=== PATIENT | female | born 1990 | race Caucasian/White ===

== ENCOUNTER → 2017-10-13 | Outpatient (CLI) | payer BC ==
--- NOTE | 2017-10-14 10:58 | ECHOF ---
Referral Reason:R00.2 Palpitations MEASUREMENTS -------- HEIGHT: 167.6 cm WEIGHT: 63.5 kg BP: RVIDd: 1.8 cm (< 3.3) IVSd: 0.9 cm (0.6 - 1.1) LVIDd: 4.6 cm (3.9 - 5.3) LVPWd: 0.9 cm (0.6 - 1.1) IVSs: 1.1 cm LVIDs: 3.0 cm LVPWs: 1.2 cm LAESV Index (A-L): 18.29 ml/m Ao Diam: 3.0 cm (2.0 - 3.7) AV Cusp: 2.2 cm (1.5 - 2.6) LA Diam: 2.2 cm (2.7 - 3.8) MV EXCURSION: 17.202 mm (> 18.000) MV EF SLOPE: 104 mm/s (70 - 150) EPSS: 0.8 cm MV E Helio: 0.97 m/s MV DecT: 274 ms MV A Helio: 0.85 m/s MV E/A Ratio: 1.14 RAP: 5.00 mmHg RVSP: 23.40 mmHg FINDINGS -------- Sinus rhythm. This was a technically good study. The left ventricular size is normal. Left ventricular wall thickness is normal. Overall left vent ricular systolic function is normal with, an EF between 55 - 60 %. The right ventricle is normal in size and function. Normal LA size by volume 22+/-6 ml/m2. The right atrium is normal in size. The aortic valve is trileaflet, and appears structurally normal. No aortic stenosis or regurgitation. The mitral valve is normal. There is trace mitral regurgitation. Trace tricuspid regurgitation present. Right ventricular systolic pressure is normal at < 35 mmHg. There is no evidence of pulmonary hypertension. The pulmonic valve is normal. The aortic root size is normal. Normal inferior vena cava with normal inspiratory collapse consistent with estimated right atrial pre ssure of 5 mmHg. The pericardium is normal. There is no pericardial effusion. CONCLUSIONS -------- 1. Sinus rhythm. 2. This was a technically good study. 3. The left ventricular size is normal. 4. Left ventricular wall thickness is normal. 5. Overall left ventricular systolic function is normal with, an EF between 55 - 60 %. 6. Normal LA size by volume 22+/-6 ml/m2. 7. The aortic valve is trileaflet, and appears structurally normal. No aortic stenosis or regurgitati on. 8. There is trace mitral regurgitation. 9. Trace tricuspid regurgitation present. 10. Right ventricular systolic pressure is normal at < 35 mmHg. 11. There is no evidence of pulmonary hypertension. 12. The aortic root size is normal. 13. There is no pericardial effusion. [employer] ANALYST: Seamus Gilbert RDCS
== END | disposition home or self-care (01) ==
LOC: RADECHMAIN 16:16
PROVIDERS: ATTEND Nurse Practitioner Family
DX: R00.2 Palpitations (principal)
CPT/HCPCS: 93306

== ENCOUNTER → 2020-07-30 | Outpatient (CLI) | payer BC | END | disposition home or self-care (01) | LOC: LABMAIN 20:37 | PROVIDERS: ATTEND Physician Assistant | DX: Z20.828 Contact with and (suspected) exposure to other viral communicable diseases (principal) | CPT/HCPCS: 87635 ==

== ENCOUNTER → 2020-08-24 | Outpatient (CLI) | payer MEDICAID | END | disposition home or self-care (01) | LOC: LABMAIN 01:19 | PROVIDERS: ATTEND Nurse Practitioner | DX: Z53.9 Procedure and treatment not carried out, unspecified reason (principal) ==

== ENCOUNTER → 2020-12-15 | Outpatient (CLI) | payer MEDICAID ==
[2020-12-15 20:29] LABS: HCT 36.7 % (34.0-46.0); HGB 12.2 gm/dL (11.4-16.0); MCH 30.5 pg (25.0-35.0); MCHC 33.1 g/dL (31.0-37.0); MCV 92.1 fL (80.0-100.0); Mean Platelet Volume 7.8; Platelet Count 253 k/uL (150-450); RBC 3.99 m/uL (3.80-5.40); WBC 7.6 k/uL (3.8-10.6)
[2020-12-16 11:35] LABS: Hepatitis B Surface Antigen Non-Reactive (Non-Reactive)
== END | disposition home or self-care (01) ==
LOC: LABMAIN 19:55
PROVIDERS: ATTEND Obstetrics & Gynecology
DX: Z34.01 Encounter for supervision of normal first pregnancy, first trimester (principal); Z3A.00 Weeks of gestation of pregnancy not specified
CPT/HCPCS: 36415; 85027; 86762; 86780; 86850; 86900; 86901; 87340; 87390

== ENCOUNTER 2020-12-21 02:04 | Emergency (ER) | payer MEDICAID ==
[2020-12-21 02:08] VITALS: RESP 18
[2020-12-21] MEDS ORDERED: SODIUM CHLORIDE 0.9% 2,000 ML IV STA (02:21)
[2020-12-21] MEDS ORDERED: diphenhydrAMINE 50 MG/ML 1 ML VIAL IVP STA (02:21)
[2020-12-21] MEDS ORDERED: METOCLOPRAMIDE 5 MG/ML 2 ML VIAL IVP STA ×2 (02:21→03:57)
--- NOTE | 2020-12-21 02:23 | ED ---
Nausea/Vomiting/Diarrhea HPI - General Chief complaint: Nausea/Vomiting/Diarrhea Stated complaint: Nausea, vomiting Time Seen by Provider: 12/21/20 02:13 Source: patient Mode of arrival: ambulatory Limitations: no limitations - History of Present Illness Initial comments: 29-year-old female, 12 week presents emergency Department with a chief complaint of nausea vomiting. Patient reports symptoms began about 2 days ago with continuous nausea and multiple episodes of nonbilious and nonbloody vomiting without any diarrhea. She denies any abdominal pain/discomfort. She denies any vaginal discharge, bleeding, dysuria increased urgency or frequency. States she recently saw her OB and was diagnosed with bacterial vaginosis and was started on topical Flagyl. She denies any fevers or chills, chest pain or shortness of breath at this time. Reports decreased appetite even though she has been taking Zofran [id number]. - Related Data Home Medications Medication Instructions Recorded Confirmed Kariva 28 1 tab PO HS 05/27/14 05/27/14 Previous Rx's Medication Instructions Recorded Acetaminophen-Codeine 300-30mg 1 tab PO Q4H PRN #30 tablet 05/30/14 [Tylenol w/codeine #3] Allergies Allergy/AdvReac Type Severity Reaction Status Date / Time No Known Allergies Allergy Verified 12/21/20 02:08 Review of Systems ROS Statement: Those systems with pertinent positive or pertinent negative responses have been documented in the HPI. ROS Other: All systems not noted in ROS Statement are negative. Past Medical History Past Medical History: No Reported History History of Any Multi-Drug Resistant Organisms: None Reported Past Surgical History: No Surgical Hx Reported Past Psychological History: No Psychological Hx Reported Smoking Status: Never smoker Past Alcohol Use History: None Reported Past Drug Use History: None Reported General Exam Limitations: no limitations General appearance: alert, in no apparent distress Head exam: Present: atraumatic, normocephalic, normal inspection Eye exam: Present: normal appearance, PERRL, EOMI Pupils: Present: normal accommodation ENT exam: Present: normal exam, normal oropharynx, mucous membranes moist, TM's normal bilaterally, normal external ear exam Neck exam: Present: normal inspection, full ROM. Absent: tenderness, lymphade nopathy Respiratory exam: Present: normal lung sounds bilaterally. Absent: respiratory distress, wheezes, rhonchi, stridor, chest wall tenderness, accessory muscle use Cardiovascular Exam: Present: regular rate, normal rhythm, normal heart sounds. Absent: systolic murmur Extremities exam: Present: normal inspection, full ROM, normal capillary refill. Absent: tenderness, pedal edema, joint swelling Back exam: Present: normal inspection, full ROM. Absent: tenderness, CVA tenderness (R), CVA tenderness (L), muscle spasm, paraspinal tenderness, vertebral tenderness Neurological exam: Present: alert, oriented X3, normal gait Psychiatric exam: Present: normal affect, normal mood Skin exam: Present: warm, dry, intact, normal color Course Vital Signs 12/21/20 12/21/20 02:07 04:29 Temperature 98 F 98.4 F Pulse Rate 98 77 Respiratory 18 18 Rate Blood Pressure 134/87 109/63 O2 Sat by Pulse 99 100 Oximetry Medical Decision Making - Medical Decision Making 29-year-old female, 12 week presents emergency Department with a chief complaint of nausea vomiting. On physical examination, no obvious signs of dehydration. Vital signs within normal limits. Patient was given 10 mg of Reglan, Benadryl and 2 L of IV fluids. CBC is unremarkable. CMP reveals mild hyponatremia with a creatinine of 0.51. UA is unremarkable. On reevaluation, patient reports improvement in her symptoms and feels comfortable going home. Return parameters were discussed with patient was icing and agreeable. Case discussed with - Lab Data Result diagrams: 12/21/20 02:28 12/21/20 02:28 Lab Results 12/21/20 12/21/20 12/21/20 Range/Units 02:28 02:28 02:28 WBC 7.8 (3.8-10.6) k/uL RBC 4.02 (3.80-5.40) m/uL Hgb 13.0 (11.4-16.0) gm/dL Hct 36.7 (34.0-46.0) % MCV 91.3 (80.0-100.0) fL MCH 32.3 (25.0-35.0) pg MCHC 35.3 (31.0-37.0) g/dL RDW 12.3 (11.5-15.5) % Plt Count 238 (150-450) k/uL MPV 7.7 Neutrophils % 64 % Lymphocytes % 26 % Monocytes % 6 % Eosinophils % 2 % Basophils % 1 % Neutrophils # 5.0 (1.3-7.7) k/uL Lymphocytes # 2.0 (1.0-4.8) k/uL Monocytes # 0.4 (0-1.0) k/uL Eosinophils # 0.2 (0-0.7) k/uL Basophils # 0.0 (0-0.2) k/uL Sodium 135 L (137-145) mmol/L Potassium 3.8 (3.5-5.1) mmol/L Chloride 102 (98-107) mmol/L Carbon Dioxide 23 (22-30) mmol/L Anion Gap 10 mmol/L BUN 7 (7-17) mg/dL Creatinine 0.51 L (0.52-1.04) mg/dL Est GFR (CKD-EPI)AfAm >90 (>60 ml/min/1.73 sqM) Est GFR (CKD-EPI)NonAf >90 (>60 ml/min/1.73 sqM) Glucose 83 (74-99) mg/dL Calcium 9.4 (8.4-10.2) mg/dL Total Bilirubin 0.4 (0.2-1.3) mg/dL AST 20 (14-36) U/L ALT 8 (4-34) U/L Alkaline Phosphatase 53 (38-126) U/L Total Protein 7.4 (6.3-8.2) g/dL Albumin 4.4 (3.5-5.0) g/dL Urine Color Light Yellow Urine Appearance Clear (Clear) Urine pH 6.5 (5.0-8.0) Ur Specific [place] 1.010 (1.001-1.035) Urine Protein Negative (Negative) Urine Glucose (UA) Negative (Negative) Urine Ketones Negative (Negative) Urine Blood Negative (Negative) Urine Nitrite Negative (Negative) Urine Bilirubin Negative (Negative) Urine Urobilinogen <2.0 (<2.0) mg/dL Ur Leukocyte Esterase Negative (Negative) Disposition Clinical Impression: Nausea and vomiting during Disposition: HOME SELF-CARE Condition: Stable Instructions (If sedation given, give patient instructions): Nausea and V omiting in (ED) Additional Instructions: Please return to the Emergency Department if symptoms worsen or any other concerns. Is patient prescribed a controlled substance at d/c from ED?: No Referrals: Esperanza Beckwith DO [Primary Care Provider] - 1-2 days Time of Disposition: 03:58
[2020-12-21 02:43] LABS: Appearance,Urine Clear (Clear); Bilirubin,Urine Negative (Negative); Blood,Urine Negative (Negative); Color,Urine Light Yellow; Glucose,Urine (UA) Negative (Negative); Ketones,Urine Negative (Negative); Leukocyte Esterase,Urine Negative (Negative); Nitrite,Urine Negative (Negative); PH, Urine 6.5 (5.0-8.0); Protein,Urine Negative (Negative); Urobilinogen,Urine <2.0 mg/dL (<2.0)
[2020-12-21 02:47] LABS: Basophils % (A) 1 %; Eosinophils # (A) 0.2 k/uL (0-0.7); Eosinophils % (A) 2 %; HCT 36.7 % (34.0-46.0); Lymphocytes % (A) 26 %; MCH 32.3 pg (25.0-35.0); MCHC 35.3 g/dL (31.0-37.0); MCV 91.3 fL (80.0-100.0); Mean Platelet Volume 7.7; Monocytes # (A) 0.4 k/uL (0-1.0); Monocytes % (A) 6 %; Neutrophils % (A) 64 %; Platelet Count 238 k/uL (150-450); RBC 4.02 m/uL (3.80-5.40); RDW 12.3 % (11.5-15.5); WBC 7.8 k/uL (3.8-10.6)
[2020-12-21 02:53] LABS: ALT 8 U/L (4-34); AST 20 U/L (14-36); African American GFR (CKD) >90 (>60 ml/min/1.73 sqM); Albumin 4.4 g/dL (3.5-5.0); Alkaline Phosphatase 53 U/L (38-126); Anion Gap 10 mmol/L; Blood Urea Nitrogen 7 mg/dL (7-17); Calcium 9.4 mg/dL (8.4-10.2); Carbon Dioxide 23 mmol/L (22-30); Chloride 102 mmol/L (98-107); Glucose 83 mg/dL (74-99); Non-African American GFR(CKD) >90 (>60 ml/min/1.73 sqM); Potassium 3.8 mmol/L (3.5-5.1); Sodium 135 mmol/L (137-145); Total Bilirubin 0.4 mg/dL (0.2-1.3); Total Protein 7.4 g/dL (6.3-8.2)
[2020-12-21 04:44] VITALS: BP 109/63; PULSE 77; TEMP 98.4
== END 2020-12-21 04:29 | disposition home or self-care (01) ==
LOC: EC 02:04
DX: O21.9 Vomiting of pregnancy, unspecified (principal); Z3A.12 12 weeks gestation of pregnancy
CPT/HCPCS: 36415; 80053; 85025; 81003; 99284; 96374; 96375 ×2; J1200; J2765

== ENCOUNTER → 2021-04-09 | Outpatient (CLI) | payer MEDICAID | END | disposition home or self-care (01) | LOC: LABWHC1 07:28 | PROVIDERS: ATTEND Obstetrics & Gynecology | DX: Z36.9 Encounter for antenatal screening, unspecified (principal) | CPT/HCPCS: 36415; 82950; 86850; 86900; 86901 ==

== ENCOUNTER 2021-05-24 21:14 | Observation (INO) | payer MEDICAID ==
[2021-05-24] MEDS ORDERED: SODIUM CHLORIDE 0.9% 1,000 ML IV STA (21:21)
[2021-05-24 21:29] LABS: Basophils % (A) 0 %; Eosinophils # (A) 0.2 k/uL (0-0.7); Eosinophils % (A) 2 %; HCT 31.8 % (34.0-46.0); HGB 11.1 gm/dL (11.4-16.0); Lymphocytes # (A) 1.9 k/uL (1.0-4.8); Lymphocytes % (A) 20 %; MCH 31.9 pg (25.0-35.0); MCHC 34.8 g/dL (31.0-37.0); MCV 91.8 fL (80.0-100.0); Mean Platelet Volume 9.2; Monocytes # (A) 0.6 k/uL (0-1.0); Monocytes % (A) 7 %; Neutrophils # (A) 6.3 k/uL (1.3-7.7); Neutrophils % (A) 68 %; Platelet Count 219 k/uL (150-450); RBC 3.47 m/uL (3.80-5.40); RDW 12.5 % (11.5-15.5); WBC 9.2 k/uL (3.8-10.6)
[2021-05-24 21:36] LABS: Chloride 105 mmol/L (98-107)
[2021-05-24 21:38] LABS: ALT 18 U/L (4-34); AST 32 U/L (14-36); African American GFR (CKD) >90 (>60 ml/min/1.73 sqM); Albumin 3.6 g/dL (3.5-5.0); Alkaline Phosphatase 121 U/L (38-126); Anion Gap 8 mmol/L; Blood Urea Nitrogen 9 mg/dL (7-17); Calcium 8.9 mg/dL (8.4-10.2); Carbon Dioxide 20 mmol/L (22-30); Glucose 94 mg/dL (74-99); Magnesium 1.9 mg/dL (1.6-2.3); Non-African American GFR(CKD) >90 (>60 ml/min/1.73 sqM); Potassium 3.6 mmol/L (3.5-5.1); Sodium 133 mmol/L (137-145); Total Bilirubin 0.4 mg/dL (0.2-1.3); Total Protein 6.7 g/dL (6.3-8.2)
[2021-05-24] MEDS ORDERED: NALOXONE 0.4 MG/ML 1 ML VIAL IV PRN (21:49)
[2021-05-24 21:50] LABS: INR 0.9 (<1.2); Partial Thromboplastin Time 20.9 sec (22.0-30.0); Prothrombin Time 9.5 sec (9.0-12.0)
[2021-05-24 23:06] LABS: Appearance,Urine Clear (Clear); Bilirubin,Urine Negative (Negative); Blood,Urine Negative (Negative); Color,Urine Yellow; Glucose,Urine (UA) Negative (Negative); Ketones,Urine Trace (Negative); Leukocyte Esterase,Urine Negative (Negative); Nitrite,Urine Negative (Negative); Protein,Urine Trace (Negative); Specific Gravity,Urine 1.021 (1.001-1.035); Urobilinogen,Urine <2.0 mg/dL (<2.0)
[2021-05-24] MEDS ORDERED: DEXTROSE 5%-0.9% NACL 1,000 ML IV SCH (23:30)
--- NOTE | 2021-05-25 00:46 | ED ---
Syncope HPI - General Chief Complaint: Syncope Stated Complaint: dizziness Source: patient Mode of arrival: ambulatory Limitations: no limitations - History of Present Illness Initial Comments: Mili is a previously healthy 30-year-old female currently 34 weeks 4 day who is evaluated today for syncope. 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 She sat down for a few minutes began to feel better so she returned to caring for patient's when again she got very lightheaded sweaty and her vision dull. She reports that everything then went fuzzy and her next very clear memory was laying in the recovery position on a stretcher. - Related Data Home Medications Medication Instructions Recorded Confirmed No Known Home Medications 05/24/21 05/24/21 Allergies Allergy/AdvReac Type Severity Reaction Status Date / Time No Known Allergies Allergy Verified 05/24/21 22:18 Review of Systems ROS Statement: Those systems with pertinent positive or pertinent negative responses have been documented in the HPI. ROS Other: All systems not noted in ROS Statement are negative. Past Medical History Past Medical History: No Reported History History of Any Multi-Drug Resistant Organisms: None Reported Past Surgical History: No Surgical Hx Reported Past Psychological History: No Psychological Hx Reported Smoking Status: Never smoker Past Alcohol Use History: None Reported Past Drug Use History: None Reported General Exam - General Exam Comments Initial Comments: Physical Exam GENERAL: Ashen jamison diaphoretic minimally responsive HENT: Normocephalic, Atraumatic. EYES: PERRL, EOMI PULMONARY: Unlabored respirations. No audible rales rhonchi or wheezing was noted. CARDIOVASCULAR: Tachycardic with no palpable radial pulses ABDOMEN: Gravid abdomen with fundus at the xiphoid, activity can be palpated through the abdomen SKIN: Ashen jamison and diaphoretic : Deferred NEUROLOGIC: Upon initial evaluation the patient seemed to have lost consciousness, when laying down she became awake alert and oriented, didn't quite recall me assessing her while sitting in the chair MUSCULOSKELETAL: Normal extremities with adequate strength and full range of motion. No lower extremity swelling or edema. No calf tenderness. PSYCHIATRIC: Normal psychiatric evaluation. Limitations: no limitations Course Vital Signs 05/24/21 05/24/21 05/24/21 21:52 22:03 22:52 Temperature 97.3 F L Pulse Rate 80 86 Respiratory 20 18 Rate Blood Pressure 103/61 O2 Sat by Pulse 100 99 Oximetry 05/24/21 23:44 Temperature Pulse Rate 86 Respiratory 30 H Rate Blood Pressure 114/70 O2 Sat by Pulse 99 Oximetry EKG Findings - EKG Comments: EKG Findings:: EKG was obtained due to syncopal episode, EKG was obtained at 2120, rate is 94 rhythm is sinus, normal axis normal intervals [place] 120, QRS 84, QTC 4:30 to the no acute ST elevations or depressions no evidence of ischemia or infarction Medical Decision Making - Medical Decision Making A coworker in the emergency department noted that Mili was sweating and appeared unwell and asked me to evaluate her. Upon my initial evaluation as she was sitting in the chair at the nurse's station, she is very pale, cool, diaphoretic. I cannot palpate a radial pulse indicating her blood pressure is quite low. I tend to get a blood pressure however the automatic machine cannot read on her arm. Her apple watch on her left arm indicated that her heart rate peaked at 172. Is concerned patient may be having an episode of SVT, I called for a gurney and had her lay down. At which time she is feeling much better. She is taking 2 in exam room, IV access and EKG were obtained Upon being connected to cardiac cath rn is patient's heart rate had normalized, she was mildly tachycardic in the low 100s. Blood pressure was in the low 100s systolic. He could see the baby actively moving. Patient was treated with 1 L IV fluid Labs with anemia likely related to . PCO2 is low likely due to hyperventilation. No other significant abnormalities are noted Patient care was discussed with Dr. Mcrae who accepts the patient to observation as the patient will need NST and fluid resuscitation - Lab Data Result diagrams: 05/24/21 21:20 05/24/21 21:20 Lab Results 05/24/21 05/24/21 05/24/21 Range/Units 21:20 21:20 21:20 WBC 9.2 (3.8-10.6) k/uL RBC 3.47 L (3.80-5.40) m/uL Hgb 11.1 L (11.4-16.0) gm/dL Hct 31.8 L (34.0-46.0) % MCV 91.8 (80.0-100.0) fL MCH 31.9 (25.0-35.0) pg MCHC 34.8 (31.0-37.0) g/dL RDW 12.5 (11.5-15.5) % Plt Count 219 (150-450) k/uL MPV 9.2 Neutrophils % 68 % Lymphocytes % 20 % Monocytes % 7 % Eosinophils % 2 % Basophils % 0 % Neutrophils # 6.3 (1.3-7.7) k/uL Lymphocytes # 1.9 (1.0-4.8) k/uL Monocytes # 0.6 (0-1.0) k/uL Eosinophils # 0.2 (0-0.7) k/uL Basophils # 0.0 (0-0.2) k/uL PT 9.5 (9.0-12.0) sec INR 0.9 (<1.2) APTT 20.9 L (22.0-30.0) sec Sodium 133 L (137-145) mmol/L Potassium 3.6 (3.5-5.1) mmol/L Chloride 105 (98-107) mmol/L Carbon Dioxide 20 L (22-30) mmol/L Anion Gap 8 mmol/L BUN 9 (7-17) mg/dL Creatinine 0.52 (0.52-1.04) mg/dL Est GFR (CKD-EPI)AfAm >90 (>60 ml/min/1.73 sqM) Est GFR (CKD-EPI)NonAf >90 (>60 ml/min/1.73 sqM) Glucose 94 (74-99) mg/dL Calcium 8.9 (8.4-10.2) mg/dL Magnesium 1.9 (1.6-2.3) mg/dL Total Bilirubin 0.4 (0.2-1.3) mg/dL AST 32 (14-36) U/L ALT 18 (4-34) U/L Alkaline Phosphatase 121 (38-126) U/L Total Protein 6.7 (6.3-8.2) g/dL Albumin 3.6 (3.5-5.0) g/dL Disposition Clinical Impression: Syncope Disposition: ADMITTED IP TO THIS HOSP Condition: Stable
[2021-05-25 01:53] VITALS: BP 123/72; PULSE 71; RESP 16; TEMP 96.6
--- NOTE | 2021-05-25 09:03 | P.HPOB ---
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 Dr. Rose the ER physician on was called to evaluate, she noted her pulse to be in the 170s. Patient states soon as she was laid on her left side on the gurney she began to feel better. She also states this happened previously in the and resolved with laying down. Patient was then taken to labor and delivery for observation over the night. monitoring was noted to be reassuring. She denied any contractions overnight. He is tolerating a regular diet and no nausea or vomiting is appreciated. Review of Systems Constitutional: Denies chills, Denies fatigue, Denies fever Ears, nose, mouth and throat: Denies headache Cardiovascular: Denies leg edema Respiratory: Denies dyspnea Gastrointestinal: Denies nausea, Denies vomiting Genitourinary: Reports Past Medical History Past Medical History: No Reported History History of Any Multi-Drug Resistant Organisms: None Reported Past Surgical History: No Surgical Hx Reported Past Anesthesia/Blood Transfusion Reactions: No Reported Reaction Past Psychological History: No Psychological Hx Reported Smoking Status: Never smoker Past Alcohol Use History: None Reported Past Drug Use History: None Reported - Past Family History Mother Family Medical History: Cancer Additional Family Medical History / Comment(s): Breast Cancer Medications and Allergies Home Medications Medication Instructions Recorded Confirmed Type Doxylamine Succinate [Unisom] 1 tab PO ONCE 05/25/21 05/25/21 History Metoclopramide HCl [Reglan] 1 tab PO ONCE 05/25/21 05/25/21 History Ondansetron [Zofran] 1 tab PO ONCE 05/25/21 05/25/21 History Pnv,Calcium 72/Iron/Folic Acid 1 tab PO ONCE 05/25/21 05/25/21 History [ Plus Tablet] Allergies Allergy/AdvReac Type Severity Reaction Status Date / Time No Known Allergies Allergy Verified 05/25/21 01:01 Exam Osteopathic Statement: *. No significant issues noted on an osteopathic structural exam other than those noted in the History and Physical/Consult. 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 Cervical exam is deferred. Results Result Diagrams: 05/24/21 21:20 05/24/21 21:20 Abnormal Lab Results - Last 24 Hours (Table) 05/24/21 05/24/21 05/24/21 Range/Units 21:20 21:20 21:20 RBC 3.47 L (3.80-5.40) m/uL Hgb 11.1 L (11.4-16.0) gm/dL Hct 31.8 L (34.0-46.0) % APTT 20.9 L (22.0-30.0) sec Sodium 133 L (137-145) mmol/L Carbon Dioxide 20 L (22-30) mmol/L Urine Protein (Negative) Urine Ketones (Negative) 05/24/21 Range/Units 22:52 RBC (3.80-5.40) m/uL Hgb (11.4-16.0) gm/dL Hct (34.0-46.0) % APTT (22.0-30.0) sec Sodium (137-145) mmol/L Carbon Dioxide (22-30) mmol/L Urine Protein Trace H (Negative) Urine Ketones Trace H (Negative) Assessment and Plan (1) 34 weeks gestation of Current Visit: Yes Status: Acute Code(s): Z3A.34 - 34 WEEKS GESTATION OF SNOMED Code(s): 37307128 (2) Syncope Current Visit: Yes Status: Acute Code(s): R55 - SYNCOPE AND COLLAPSE SNOMED Code(s): 759851526 Plan: 30-year-old at 34-4/7 weeks that was admitted for observation overnight 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 Patient has felt well since arriving on labor and delivery. She notes good movement. She feels well and wishes discharge home.
== END 2021-05-25 09:18 | disposition home or self-care (01) ==
LOC: EC 21:14 → 4FBP 21:49
PROVIDERS: ADMIT Obstetrics & Gynecology Obstetrics; ATTEND Obstetrics & Gynecology Obstetrics
DX: O99.891 Other specified diseases and conditions complicating pregnancy (principal); R55 Syncope and collapse; O99.413 Diseases of the circulatory system complicating pregnancy, third trimester; R00.0 Tachycardia, unspecified; Z3A.34 34 weeks gestation of pregnancy; Z79.899 Other long term (current) drug therapy; Z80.3 Family history of malignant neoplasm of breast
CPT/HCPCS: 96360; 99285; 36415; 93005; 80053; 83735; 85025; 85610; 85730; 81003; 87635; G0378 ×2

== ENCOUNTER → 2021-06-05 | Outpatient (CLI) | payer MEDICAID | END | disposition home or self-care (01) | LOC: LABWHC1 08:48 | PROVIDERS: ATTEND Obstetrics & Gynecology | DX: L50.9 Urticaria, unspecified (principal) | CPT/HCPCS: 36415; 82239 ==

== ENCOUNTER 2021-07-07 00:12 | Inpatient (IN) | payer MEDICAID ==
[2021-07-07] MEDS ORDERED: METHYLERGONOVINE 0.2 MG/ML 1 ML AMP IM PRN (02:03)
[2021-07-07] MEDS ORDERED: TERBUTALINE 1 MG/ML VIAL SQ PRN (02:03)
[2021-07-07] MEDS ORDERED: CARBOPROST TROMETHAMINE 250 MCG/ML 1 ML AMP IM PRN (02:03)
[2021-07-07] MEDS ORDERED: OXYTOCIN 10 UNIT/ML 1 ML VIAL IM PRN (02:03)
[2021-07-07] MEDS ORDERED: LIDOCAINE 0.5% (PF) 5 MG/ML (50 ML SDV) SQ PRN (02:03)
[2021-07-07] MEDS ORDERED: OXYTOCIN 30 UNITS/500 ML NS 30 UNIT in SALINE 1 500ML.BAG IV SCH (02:15)
[2021-07-07 02:18] LABS: Basophils % (A) 0 %; Eosinophils # (A) 0.1 k/uL (0-0.7); Eosinophils % (A) 2 %; HCT 31.8 % (34.0-46.0); HGB 10.9 gm/dL (11.4-16.0); Lymphocytes # (A) 1.3 k/uL (1.0-4.8); Lymphocytes % (A) 15 %; MCH 30.3 pg (25.0-35.0); MCHC 34.2 g/dL (31.0-37.0); MCV 88.6 fL (80.0-100.0); Mean Platelet Volume 10.1; Monocytes # (A) 0.6 k/uL (0-1.0); Monocytes % (A) 7 %; Neutrophils # (A) 6.1 k/uL (1.3-7.7); Neutrophils % (A) 74 %; Platelet Count 195 k/uL (150-450); RBC 3.59 m/uL (3.80-5.40); RDW 13.5 % (11.5-15.5); WBC 8.4 k/uL (3.8-10.6)
[2021-07-07 02:52] VITALS: RESP 16
[2021-07-07] MEDS ORDERED: BUTORPHANOL 1 MG/ML 1 ML VIAL IV PRN (03:10)
[2021-07-07] MEDS: LACTATED RINGERS 1,000 ML IV SCH ×3 (03:21→07:50)
[2021-07-07] MEDS ORDERED: SODIUM CHLORIDE 0.9% 100 ML BAG ONE (07:25)
[2021-07-07] MEDS ORDERED: ROPIVACAINE 5MG/ML 20ML VIAL ONE (07:25)
[2021-07-07] MEDS ORDERED: fentaNYL (PF) 50 MCG/ML 5 ML AMP ONE (07:25)
[2021-07-07] MEDS ORDERED: ROPIVACAINE 100 MG, fentaNYL (PF). 200 MCG in SODIUM CHLORIDE 0.9% 76 ML EPIDURAL ONE (07:42)
--- NOTE | 2021-07-07 08:16 | P.HPOB ---
History of Present Illness H&P Date: 07/07/21 Chief Complaint: uterine contractions This is a 30-year-old female 1 para 0 EDC 07/02/2021 at 40-6/7 weeks' gestation who presented last night with uterine contractions every 9 minutes apart. She was admitted, oxytocin was started this morning. At this point she is uncomfortable and epidural has been placed. She denies vaginal bleeding or fluid leakage. Past medical history significant for endometriosis, ovarian cyst. Past surgical history colposcopy, exploratory laparotomy in 2013. Current medications vitamins daily, Zyrtec as needed, Tylenol as needed, Zofran as needed, baby aspirin daily. ALLERGIES none known. Family history significant for hypertension, diabetes, breast cancer, endometriosis, endometrial cancer. Social history patient is single, boyfriend Raman is present. 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 She denies alcohol or drug use or tobacco. history blood type is A-, broke and received. Urine culture, hepatitis B surface antigen, HIV testing, gonorrhea and chlamydia cultures, group B strep cultures all negative. One-hour Glucola 131. On exam patient is 5 foot 5 inches, 160 pounds, blood pressure 126/79, general physical exam is within normal limits. Cervix at time of this dictation is 6-7 cm dilated, 100% effaced, -1 station, vertex presentation. Artificial amniorrhexis reveals clear fluid. heart rate is consistent with reactive NST. Impression: 40-6/7 weeks intrauterine , active labor. All signs reassuring. Plan: Continue oxytocin per hospital protocol. Continue close maternal and surveillance. Anticipating normal spontaneous vaginal delivery. Review of Systems Constitutional: Reports as per HPI Past Medical History Past Medical History: No Reported History History of Any Multi-Drug Resistant Organisms: None Reported Past Surgical History: No Surgical Hx Reported Past Anesthesia/Blood Transfusion Reactions: No Reported Reaction Past Psychological History: No Psychological Hx Reported Smoking Status: Never smoker Past Alcohol Use History: None Reported Past Drug Use History: None Reported - Past Family History Mother Family Medical History: Cancer Additional Family Medical History / Comment(s): Breast Cancer Medications and Allergies Home Medications Medication Instructions Recorded Confirmed Type Pnv,Calcium 72/Iron/Folic Acid 1 tab PO ONCE 05/25/21 07/07/21 History [ Plus Tablet] Allergies Allergy/AdvReac Type Severity Reaction Status Date / Time No Known Allergies Allergy Verified 07/07/21 00:20 Exam Vital Signs Temp Pulse Resp BP Pulse Ox 07/07/21 02:01 96.3 F L 82 16 126/79 100 07/07/21 00:19 96.3 F L 82 16 126/79 100 Intake and Output 07/06/21 07/07/21 07/07/21 22:59 06:59 14:59 Other: # Voids 3 Weight 72.575 kg See dictation under HPI please Results Result Diagrams: 07/07/21 02:00 Abnormal Lab Results - Last 24 Hours (Table) 07/07/21 Range/Units 02:00 RBC 3.59 L (3.80-5.40) m/uL Hgb 10.9 L (11.4-16.0) gm/dL Hct 31.8 L (34.0-46.0) % Assessment and Plan Assessment: 40-6/7 weeks intrauterine , active labor. Epidural placed. All signs reassuring. Plan: Continue close maternal and surveillance. Anticipate normal spontaneous vaginal delivery. Time with Patient: Less than 30
[2021-07-07] MEDS ORDERED: diphenhydrAMINE 25 MG CAP PO PRN (10:26)
[2021-07-07] MEDS ORDERED: ACETAMINOPHEN TAB 325 MG TAB PO PRN (10:26)
[2021-07-07] MEDS ORDERED: diphenhydrAMINE ELIXIR 25 MG/10 ML CUP PO PRN (10:26)
[2021-07-07] MEDS ORDERED: BENZOCAINE/MENTHOL SPRAY 1 GM/SPRAY AEROSOL TOPICAL PRN (10:26)
[2021-07-07] MEDS ORDERED: HYDROCORTISONE 2.5% RECTAL CREAM 30 GM TUBE RECTAL PRN (10:26)
[2021-07-07] MEDS ORDERED: LANOLIN CREAM 5 GM TUBE TOPICAL PRN (10:26)
[2021-07-07] MEDS ORDERED: ZOLPIDEM 5 MG TAB PO PRN (10:26)
[2021-07-07] MEDS ORDERED: SIMETHICONE 80 MG CHEWABLE PO PRN (10:26)
[2021-07-07] MEDS ORDERED: diphenhydrAMINE 50 MG CAP PO PRN (10:26)
[2021-07-07] MEDS ORDERED: diphenhydrAMINE 50 MG/ML 1 ML VIAL IVP PRN ×2 (10:26)
--- NOTE | 2021-07-07 10:26 | P.PROBDLV ---
Vaginal Delivery Note - . Vaginal Delivery Note: This is a 30-year-old female 1 para 0 EDC 07/02/2021 at 40-6/7 weeks' gestation who presented in early spontaneous labor. Initially several late decelerations were noted and monitoring, therefore patient was admitted. Artificial amniorrhexis this morning revealed clear fluid. Oxytocin was started and titrated per hospital protocol. Epidural was placed per her request. Group B strep cultures are negative, blood type B negative, rubella status is immune. Please see my dictated history and physical for details. Patient ultimately became completely dilated at 0923 hours and began the second stage of labor at that time. With strong and regular expulsive efforts, ultimately the perineal body was prepped and draped in usual sterile fashion. Infant's head delivered occiput anterior and he restituted accordingly. There is a nuchal cord 2 that was reduced on the perineal body. The left or anterior shoulder was delivered from underneath the pubic symphysis at which time the oropharynx, nasopharynx, and external nares were all bulb suctioned. Patient was officially delivered of a liveborn male at 1012 hours. Umbilical cord was doubly clamped and ligated, he was handed to waiting nurses for evaluation where scores of 9 and 9 at one and 5 minutes respectively were given. Placenta delivered spontaneously, it was inspected and noted to be intact with trivascular cord at 1014 hours. Uterus is then massaged. Bleeding is well c ontrolled. Her full examination of the cervix, vagina, perineum, periurethral, and perirectal areas revealed a small periurethral laceration, first-degree. This is reapproximated with a single [id number] suture of repeat. Total estimated blood loss 200 mL's. Infant weighed 6 lbs. 10 oz. or 2995 g. Patient is requesting circumcision for her son.
[2021-07-07] MEDS: IBUPROFEN 600 MG TAB PO SCH ×3 (11:18→20:07)
[2021-07-07] MEDS: SENNOSIDES-DOCUSATE SODIUM 1 EACH TAB PO SCH (20:07)
--- NOTE | 2021-07-08 09:04 | P.DS ---
Providers Date of admission: 07/07/21 01:32 Expected date of discharge: 07/08/21 Attending physician: Benita Duarte Primary care physician: Stated None Hospital Course: This is a 30-year-old female 1 para 0 EDC 07/02/2021 at 40-6/7 weeks' gestation who presented with spontaneous uterine contractions every 9 minutes apart. In the triage area several late decelerations were noted, patient was admitted for labor. Artificial amniorrhexis revealed clear fluid. Oxytocin was started and titrated per hospital protocol. Patient went on to deliver vaginally a liveborn male with scores of 9 and 9 at one and 5 minut es respectively. There was a nuchal cord 2 that was reduced. Infant weighed 2995 g or 6 lbs. 10 oz. There was a small first-degree perineal laceration easily repaired. Estimated blood loss 200 mL's. Please see my dictated history and physical as well as delivery note for details. This morning the patient is doing well. She is voiding, ambulating, passing flatus without difficulty. Vital signs are stable and she is afebrile. Rest are not engorged, breast-feeding is going well. Minimal lochia rubra. No complaints of pain. [place] has been circumcised. Patient is judged to be in very good condition for discharge home. She will follow-up in the office in 6 weeks. I have reminded her no intercourse, tampons or douching. She will use [id number] Advil or Aleve, or Motrin as needed for pain. She will call with any fevers shakes or chills, foul smelling or copious lochia, with the passage of large blood clots, with any pain not alleviated by [id number] products, or indeed with any difficulties or concerns. Assessment: Doing well first day Patient Condition at Discharge: Good Plan - Discharge Summary New Discharge Prescriptions: No Action Pnv,Calcium 72/Iron/Folic Acid [ Plus Tablet] 1 tab PO ONCE Discharge Medication List Pnv,Calcium 72/Iron/Folic Acid [ Plus Tablet] 1 tab PO ONCE 05/25/21 [History] Follow up Appointment(s)/Referral(s): Benita Duarte MD [STAFF PHYSICIAN] - 6 Weeks Discharge Disposition: HOME SELF-CARE
[2021-07-08 09:46] VITALS: BP 117/81; PULSE 86; TEMP 98
[2021-07-08] MEDS: SENNOSIDES-DOCUSATE SODIUM 1 EACH TAB PO SCH (09:46)
[2021-07-08] MEDS: Rhogam IMMUNE GLOBULIN 1,500 UNIT/1 ML IM ONE ×2 (09:53→09:54)
[2021-07-08] MEDS ORDERED: Rhogam IMMUNE GLOBULIN 1,500 UNIT/1 ML IM ONE (09:55)
== END 2021-07-08 11:45 | disposition home or self-care (01) | DRG 807 ==
LOC: FBPOP 00:12 → 4FBP 01:32
PROVIDERS: ADMIT Obstetrics & Gynecology; ATTEND Obstetrics & Gynecology
PROC: 10E0XZZ Delivery of Products of Conception, External Approach (ICD-10-PCS; principal; 2021-07-07)
PROC: 0HQ9XZZ Repair Perineum Skin, External Approach (ICD-10-PCS; 2021-07-07)
PROC: 10907ZC Drainage of Amniotic Fluid, Therapeutic from Products of Conception, Via Natural or Artificial Opening (ICD-10-PCS; 2021-07-07)
PROC: 3E033VJ Introduction of Other Hormone into Peripheral Vein, Percutaneous Approach (ICD-10-PCS; 2021-07-07)
PROC: 4A0HX4Z Measurement of Products of Conception, Cardiac Electrical Activity, External Approach (ICD-10-PCS; 2021-07-07)
DX: O76 Abnormality in fetal heart rate and rhythm complicating labor and delivery (principal); Z37.0 Single live birth; O70.0 First degree perineal laceration during delivery; O69.81X0 Labor and delivery complicated by cord around neck, without compression, not applicable or unspecified; Z3A.40 40 weeks gestation of pregnancy; Z79.82 Long term (current) use of aspirin
CPT/HCPCS: 85025; 85461; 86850; 86900; 86901; 99213

== ENCOUNTER → 2022-01-10 | Outpatient (CLI) | payer MEDICAID | END | disposition home or self-care (01) | LOC: LABMAIN 04:01 | PROVIDERS: ATTEND Physician Assistant | DX: Z20.822 Contact with and (suspected) exposure to COVID-19 (principal); R05.9 Cough, unspecified; R09.81 Nasal congestion | CPT/HCPCS: 87502; 87635 ==

== ENCOUNTER → 2022-01-25 | Outpatient (CLI) | payer MEDICAID ==
--- NOTE | 2022-01-25 04:43 | XR ---
EXAMINATION TYPE: XR soft tissue neck DATE OF EXAM: 01/25/2022 COMPARISON: NONE HISTORY: Sore throat TECHNIQUE: 2 views FINDINGS: Epiglottis is normal. Prevertebral soft tissues appear normal. Subglottic trachea is normal . The tonsils and adenoids appear normal. Cervical vertebra have normal alignment. Disc spaces are no rmal. IMPRESSION: Normal cervical soft tissue exam.
== END | disposition home or self-care (01) ==
LOC: LABMAIN 04:21
PROVIDERS: ATTEND Emergency Medicine
DX: R07.0 Pain in throat (principal)
CPT/HCPCS: 70360

== ENCOUNTER 2022-02-09 22:55 | Emergency (ER) | payer MEDICAID, OTHER ==
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
[2022-02-10 02:52] VITALS: BP 111/72; PULSE 86; RESP 17; TEMP 98.6
== END 2022-02-10 00:02 | disposition home or self-care (01) ==
LOC: EC 22:55
DX: S89.91XA Unspecified injury of right lower leg, initial encounter (principal); W50.1XXA Accidental kick by another person, initial encounter
CPT/HCPCS: 99283

== ENCOUNTER → 2022-08-27 | Outpatient (CLI) | payer MEDICAID ==
[2022-08-28 10:11] LABS: T4, Free (Free Thyroxine) 1.1 ng/dL (0.800-1.800)
== END | disposition home or self-care (01) ==
LOC: LABMAIN 23:54
PROVIDERS: ATTEND Emergency Medicine
DX: R63.4 Abnormal weight loss (principal)
CPT/HCPCS: 84439; 84443; 86800

== ENCOUNTER 2023-03-31 08:12 | Emergency (ER) | payer MEDICAID ==
[2023-03-31 08:15] VITALS: TEMP 99
[2023-03-31] MEDS ORDERED: SODIUM CHLORIDE 0.9% 2,000 ML IV STA (08:22)
[2023-03-31] MEDS ORDERED: ONDANSETRON 4 MG/2 ML VIAL IVP STA (08:23)
[2023-03-31] MEDS ORDERED: FAMOTIDINE 20 MG/2 ML VIAL IV STA (08:24)
[2023-03-31] MEDS ORDERED: DIPHENOX-ATROP 2.5-0.025 MG 1 EACH TAB PO STA (08:24)
[2023-03-31 08:58] LABS: Basophils % (A) 0 %; Eosinophils # (A) 0.1 k/uL (0-0.7); Eosinophils % (A) 1 %; HCT 36.7 % (34.0-46.0); HGB 12.4 gm/dL (11.4-16.0); Lymphocytes # (A) 0.6 k/uL (1.0-4.8); Lymphocytes % (A) 10 %; MCH 30.8 pg (25.0-35.0); MCHC 33.9 g/dL (31.0-37.0); MCV 90.8 fL (80.0-100.0); Mean Platelet Volume 7.7; Monocytes # (A) 0.4 k/uL (0-1.0); Monocytes % (A) 7 %; Neutrophils # (A) 5.1 k/uL (1.3-7.7); Neutrophils % (A) 79 %; Platelet Count 192 k/uL (150-450); RBC 4.05 m/uL (3.80-5.40); RDW 12.2 % (11.5-15.5); WBC 6.4 k/uL (3.8-10.6)
[2023-03-31 09:19] LABS: Appearance,Urine Cloudy (Clear); Bacteria,Urine Rare /hpf; Bilirubin,Urine Negative (Negative); Blood,Urine Moderate (Negative); Glucose,Urine (UA) Negative (Negative); Hyaline Casts,Urine 1 /lpf (0-2); Ketones,Urine 2+ (Negative); Leukocyte Esterase,Urine Moderate (Negative); Mucus,Urine Many /hpf; Nitrite,Urine Negative (Negative); PH, Urine 5.5 (5.0-8.0); Protein,Urine 1+ (Negative); RBC,Urine 7 /hpf (0-5); Specific Gravity,Urine 1.024 (1.001-1.035); Squamous Epithelial Cell,Urine 11 /hpf (0-4); Urobilinogen,Urine <2.0 mg/dL (<2.0); WBC,Urine 13 /hpf (0-5)
[2023-03-31 09:21] LABS: Color,Urine Yellow
[2023-03-31 09:28] LABS: ALT 14 U/L (4-34); AST 21 U/L (14-36); African American GFR (CKD) >90 (>60 ml/min/1.73 sqM); Albumin 4.1 g/dL (3.5-5.0); Alkaline Phosphatase 72 U/L (38-126); Anion Gap 8 mmol/L; Blood Urea Nitrogen 7 mg/dL (7-17); Calcium 8.5 mg/dL (8.4-10.2); Carbon Dioxide 24 mmol/L (22-30); Chloride 102 mmol/L (98-107); Glucose 101 mg/dL (74-99); Lipase 36 U/L (23-300); Magnesium 1.9 mg/dL (1.6-2.3); Non-African American GFR(CKD) >90 (>60 ml/min/1.73 sqM); Potassium 3.6 mmol/L (3.5-5.1); Sodium 134 mmol/L (137-145); Total Bilirubin 0.6 mg/dL (0.2-1.3); Total Protein 7.2 g/dL (6.3-8.2)
[2023-03-31 09:56] VITALS: BP 107/65; PULSE 92; RESP 16
[2023-03-31] MEDS ORDERED: DIPHENOX-ATROP STARTER PACK 8 TAB BTL PO STA ×2 (10:23→10:24)
--- NOTE | 2023-03-31 10:24 | ED ---
Abdominal Pain HPI - General Chief Complaint: Abdominal Pain Stated Complaint: Abd Pain Time Seen by Provider: 03/31/23 08:14 Source: patient, RN notes reviewed Mode of arrival: ambulatory Limitations: no limitations - History of Present Illness Initial Comments: This is a pleasant 32-year-old female presents emergency Department with chief complaint of diarrhea. Patient had symptoms for last few days. She states as soon she eats she feels improved to or causing excessive diarrhea. She states she feels Dehydrated she has had some nausea, mild abdominal cramping but did not persistent pain. She's had some chills, hot and cold flashes. She denies any prior appendectomy and cholecystectomy. Denies any recent antibiotic use denies any chance no dysuria. - Related Data Home Medications Medication Instructions Recorded Confirmed Vit No.180/Iron/Folic 1 tab PO ONCE 05/25/21 07/07/21 [ Plus Tablet] Allergies Allergy/AdvReac Type Severity Reaction Status Date / Time No Known Allergies Allergy Verified 03/31/23 08:15 Review of Systems ROS Statement: Those systems with pertinent positive or pertinent negative responses have been documented in the HPI. ROS Other: All systems not noted in ROS Statement are negative. Past Medical History Past Medical History: No Reported History History of Any Multi-Drug Resistant Organisms: None Reported Past Surgical History: No Surgical Hx Reported Past Anesthesia/Blood Transfusion Reactions: No Reported Reaction Past Psychological History: No Psychological Hx Reported Smoking Status: Never smoker Past Alcohol Use History: Occasional Past Drug Use History: None Reported - Past Family History Mother Family Medical History: Cancer Additional Family Medical History / Comment(s): Breast Cancer General Exam Limitations: no limitations General appearance: alert, in no apparent distress Head exam: Present: atraumatic, normocephalic, normal inspection Eye exam: Present: normal appearance, PERRL, EOMI. Absent: scleral icterus, conjunctival injection, periorbital swelling ENT exam: Present: normal exam, normal oropharynx, mucous membranes moist Neck exam: Present: normal inspection, full ROM. Absent: tenderness, meningismus, lymphadenopathy Respiratory exam: Present: normal lung sounds bilaterally. Absent: respiratory distress, wheezes, rales, rhonchi, stridor Cardiovascular Exam: Present: normal rhythm, tachycardia, normal heart sounds. Absent: systolic murmur, diastolic murmur, rubs, gallop, clicks GI/Abdominal exam: Present: soft, tenderness (Minimal), normal bowel sounds. Absent: distended, guarding, rebound, rigid Course Vital Signs 03/31/23 03/31/23 08:12 09:55 Temperature 99 F Pulse Rate 114 H 92 Respiratory 18 16 Rate Blood Pressure 129/85 107/65 O2 Sat by Pulse 99 100 Oximetry Medical Decision Making - Medical Decision Making Was pt. sent in by a medical professional or institution (, [facility]AME, ORTHOTIST PROSTHETIST, urgent care, hospital, or shelter...) When possible be specific @ -No Did you speak to anyone other than the patient for history (EMS, parent, family, police, friend...)? What history was obtained from this source @ -No Did you review nursing and triage notes (agree or disagree)? Why? @ -I reviewed and agree with nursing and triage notes Were old charts reviewed (outside hosp., previous admission, EMS record, old EKG, old radiological studies, urgent care reports/EKG's, shelter records)? Report findings @ -No old charts were reviewed Differential Diagnosis (chest pain, altered mental status, abdominal pain women, abdominal pain men, vaginal bleeding, weakness, fever, dyspnea, syncope, headache, dizziness, GI bleed, back pain, seizure, CVA, palpatations, mental health, musculoskeletal)? @ -ADifferential Abdominal Pain Women: Appendicitis, Cholecystitis, diverticulosis, ischemic bowel, pancreatitis, hepatitis, UTI, gastroenteritis, AAA, incarcerated hernia, bowel obstruction, constipation, inflammatory bowel, hepatitis, peptic ulcer disease, splenic infarction, perforated viscus, vulvitis, ovarian torsion, PID, kidney stone, placenta abruption, this is not meant to be an all-inclusive list EKG interpreted by me (3pts min.). @ -None X-rays interpreted by me (1pt min.). @ -None done CT interpreted by me (1pt min.). @ -None done U/S interpreted by me (1pt. min.). @ -None done What testing was considered but not performed or refused? (CT, X-rays, U/S, labs)? Why? @ -None What meds were considered but not given or refused? Why? @ -None Did you discuss the management of the patient with other professionals (professionals i.e. MAAME Coates, ORTHOTIST PROSTHETIST, lab, RT, psych nurse, social services aide, repair operator, teacher, loan service officer, showcase trimmer)? Give summary @ -No Was smoking cessation discussed for >3mins.? @ -No Was critical care preformed (if so, how long)? @ -No Were there social determinants of health that impacted care today? How? (Homelessness, low income, unemployed, alcoholism, drug addiction, transportation, low edu. Level, literacy, decrease access to med. care, prison, rehab)? @ -No Was there de-escalation of care discussed even if they declined (Discuss DNR or withdrawal of care, Hospice)? DNR status @ -No What co-morbidities impacted this encounter? (DM, HTN, Smoking, COPD, CAD, Cancer, CVA, ARF, Chemo, Hep., AIDS, mental health diagnosis, sleep apnea, morbid obesity)? @ -None Was patient admitted / discharged? Hospital course, mention meds given and r oute, prescriptions, significant lab abnormalities, going to OR and other pertinent info. @ -Discharge patient as well hydrated, laboratory studies and urinalysis show mild dehydration otherwise no acute process. Patient did have improvement with Lomotil. Return parameters were discussed. Undiagnosed new problem with uncertain prognosis? @ -No Drug Therapy requiring intensive monitoring for toxicity (Heparin, Nitro, I nsulin, Cardizem)? @ -No Were any procedures done? @ -No Diagnosis/symptom? @ -Diarrhea, dehydration Acute, or Chronic, or Acute on Chronic? @ -Acute Uncomplicated (without systemic symptoms) or Complicated (systemic symptoms)? @ -Complicated Side effects of treatment? @ -No Exacerbation, Progression, or Severe Exacerbation? @ -No Poses a threat to life or bodily function? How? (Chest pain, USA, CT, pneumonia, PE, COPD, DKA, ARF, appy, cholecystitis, CVA, Diverticulitis, Homicidal, Suicidal, threat to staff... and all critical care pts) @ -No - Lab Data Result diagrams: 03/31/23 08:32 03/31/23 08:32 Lab Results 03/31/23 03/31/23 03/31/23 Range/Units 08:32 08:32 08:32 WBC 6.4 (3.8-10.6) k/uL RBC 4.05 (3.80-5.40) m/uL Hgb 12.4 (11.4-16.0) gm/dL Hct 36.7 (34.0-46.0) % MCV 90.8 (80.0-100.0) fL MCH 30.8 (25.0-35.0) pg MCHC 33.9 (31.0-37.0) g/dL RDW 12.2 (11.5-15.5) % Plt Count 192 (150-450) k/uL MPV 7.7 Neutrophils % 79 % Lymphocytes % 10 % Monocytes % 7 % Eosinophils % 1 % Basophils % 0 % Neutrophils # 5.1 (1.3-7.7) k/uL Lymphocytes # 0.6 L (1.0-4.8) k/uL Monocytes # 0.4 (0-1.0) k/uL Eosinophils # 0.1 (0-0.7) k/uL Basophils # 0.0 (0-0.2) k/uL Sodium (137-145) mmol/L Potassium (3.5-5.1) mmol/L Chloride (98-107) mmol/L Carbon Dioxide (22-30) mmol/L Anion Gap mmol/L BUN (7-17) mg/dL Creatinine (0.52-1.04) mg/dL Est GFR (CKD-EPI)AfAm (>60 ml/min/1.73 sqM) Est GFR (CKD-EPI)NonAf (>60 ml/min/1.73 sqM) Glucose (74-99) mg/dL Plasma Lactic Acid Allen (0.7-2.0) mmol/L Calcium (8.4-10.2) mg/dL Magnesium (1.6-2.3) mg/dL Total Bilirubin (0.2-1.3) mg/dL AST (14-36) U/L ALT (4-34) U/L Alkaline Phosphatase (38-126) U/L Total Protein (6.3-8.2) g/dL Albumin (3.5-5.0) g/dL Lipase (23-300) U/L Urine Color Yellow Urine Appearance Cloudy H (Clear) Urine pH 5.5 (5.0-8.0) Ur Specific [place] 1.024 (1.001-1.035) Urine Protein 1+ H (Negative) Urine Glucose (UA) Negative (Negative) Urine Ketones 2+ H (Negative) Urine Blood Moderate H (Negative) Urine Nitrite Negative (Negative) Urine Bilirubin Negative (Negative) Urine Urobilinogen <2.0 (<2.0) mg/dL Ur Leukocyte Esterase Moderate H (Negative) Urine RBC 7 H (0-5) /hpf Urine WBC 13 H (0-5) /hpf Ur Squamous Epith Cells 11 H (0-4) /hpf Urine Bacteria Rare H (None) /hpf Hyaline Casts 1 (0-2) /lpf Urine Mucus Many H (None) /hpf Urine HCG, Qual Not Detected (Not Detectd) 03/31/23 03/31/23 Range/Units 08:32 08:32 WBC (3.8-10.6) k/uL RBC (3.80-5.40) m/uL Hgb (11.4-16.0) gm/dL Hct (34.0-46.0) % MCV (80.0-100.0) fL MCH (25.0-35.0) pg MCHC (31.0-37.0) g/dL RDW (11.5-15.5) % Plt Count (150-450) k/uL MPV Neutrophils % % Lymphocytes % % Monocytes % % Eosinophils % % Basophils % % Neutrophils # (1.3-7.7) k/uL Lymphocytes # (1.0-4.8) k/uL Monocytes # (0-1.0) k/uL Eosinophils # (0-0.7) k/uL Basophils # (0-0.2) k/uL Sodium 134 L (137-145) mmol/L Potassium 3.6 (3.5-5.1) mmol/L Chloride 102 (98-107) mmol/L Carbon Dioxide 24 (22-30) mmol/L Anion Gap 8 mmol/L BUN 7 (7-17) mg/dL Creatinine 0.72 (0.52-1.04) mg/dL Est GFR (CKD-EPI)AfAm >90 (>60 ml/min/1.73 sqM) Est GFR (CKD-EPI)NonAf >90 (>60 ml/min/1.73 sqM) Glucose 101 H (74-99) mg/dL Plasma Lactic Acid Allen 0.9 (0.7-2.0) mmol/L Calcium 8.5 (8.4-10.2) mg/dL Magnesium 1.9 (1.6-2.3) mg/dL Total Bilirubin 0.6 (0.2-1.3) mg/dL AST 21 (14-36) U/L ALT 14 (4-34) U/L Alkaline Phosphatase 72 (38-126) U/L Total Protein 7.2 (6.3-8.2) g/dL Albumin 4.1 (3.5-5.0) g/dL Lipase 36 (23-300) U/L Urine Color Urine Appearance (Clear) Urine pH (5.0-8.0) Ur Specific [place] (1.001-1.035) Urine Protein (Negative) Urine Glucose (UA) (Negative) Urine Ketones (Negative) Urine Blood (Negative) Urine Nitrite (Negative) Urine Bilirubin (Negative) Urine Urobilinogen (<2.0) mg/dL Ur Leukocyte Esterase (Negative) Urine RBC (0-5) /hpf Urine WBC (0-5) /hpf Ur Squamous Epith Cells (0-4) /hpf Urine Bacteria (None) /hpf Hyaline Casts (0-2) /lpf Urine Mucus (None) /hpf Urine HCG, Qual (Not Detectd) Disposition Clinical Impression: Diarrhea, Dehydration Disposition: HOME SELF-CARE Condition: Stable Instructions (If sedation given, give patient instructions): Acute Diarrhea (ED) Additional Instructions: Please return to the Emergency Department if symptoms worsen or any other concerns. Is patient prescribed a controlled substance at d/c from ED?: No Referrals: Esperanza Beckwith DO [Primary Care Provider] - 1-2 days Time of Disposition: 10:24
== END 2023-03-31 10:33 | disposition home or self-care (01) ==
LOC: EC 08:12
DX: R19.7 Diarrhea, unspecified (principal); E86.0 Dehydration
CPT/HCPCS: 36415; 80053; 83605; 83690; 83735; 85025; 81001; 81025; 99284; 96374; 96375; 96361 ×2; J2405

== ENCOUNTER 2023-11-04 11:14 | Emergency (ER) | payer MEDICAID ==
[2023-11-04] MEDS: FAMOTIDINE 20 MG/2 ML VIAL IV STA (11:27)
[2023-11-04] MEDS: SODIUM CHLORIDE 0.9% 2,000 ML IV STA (11:27)
[2023-11-04] MEDS: METOCLOPRAMIDE 5 MG/ML 2 ML VIAL IVP STA (11:27)
[2023-11-04] MEDS: diphenhydrAMINE 50 MG/ML 1 ML VIAL IVP STA (11:28)
[2023-11-04 11:42] LABS: Basophils % (A) 0 %; Eosinophils # (A) 0.2 k/uL (0-0.7); Eosinophils % (A) 2 %; HCT 36.8 % (34.0-46.0); HGB 12.8 gm/dL (11.4-16.0); Lymphocytes # (A) 0.8 k/uL (1.0-4.8); Lymphocytes % (A) 7 %; MCH 32.5 pg (25.0-35.0); MCHC 34.7 g/dL (31.0-37.0); MCV 93.6 fL (80.0-100.0); Mean Platelet Volume 9.2; Monocytes # (A) 0.5 k/uL (0-1.0); Monocytes % (A) 4 %; Neutrophils # (A) 9.8 k/uL (1.3-7.7); Neutrophils % (A) 86 %; Platelet Count 221 k/uL (150-450); RBC 3.93 m/uL (3.80-5.40); RDW 13.6 % (11.5-15.5); WBC 11.4 k/uL (3.8-10.6)
[2023-11-04 11:54] LABS: ALT 10 U/L (4-34); AST 21 U/L (14-36); African American GFR (CKD) >90 (>60 ml/min/1.73 sqM); Albumin 4.3 g/dL (3.5-5.0); Alkaline Phosphatase 106 U/L (38-126); Anion Gap 10 mmol/L; Blood Urea Nitrogen 8 mg/dL (7-17); Calcium 9.2 mg/dL (8.4-10.2); Carbon Dioxide 23 mmol/L (22-30); Chloride 104 mmol/L (98-107); Glucose 90 mg/dL (74-99); Lipase 124 U/L (23-300); Non-African American GFR(CKD) >90 (>60 ml/min/1.73 sqM); Potassium 4.2 mmol/L (3.5-5.1); Sodium 137 mmol/L (137-145); Total Bilirubin 0.5 mg/dL (0.2-1.3); Total Protein 7.8 g/dL (6.3-8.2)
[2023-11-04 11:56] VITALS: RESP 18; TEMP 97.7
--- NOTE | 2023-11-04 12:15 | US ---
EXAMINATION TYPE: US gallbladder DATE OF EXAM: 11/04/2023 COMPARISON: NONE CLINICAL INDICATION: Female, 32 years old with history of pain; Pt states ABD pain, N&V that started today, pt is approx 24 weeks TECHNIQUE: Multiple sonographic images of the right upper quadrant are obtained. FINDINGS: EXAM MEASUREMENTS: Liver Length: 15.3 cm Gallbladder Wall: 0.2 cm CBD: 0.3 cm Right Kidney: 9.6 x 4.5 x 5.1 cm NANOTECHNOLOGY TECHNICIAN NOTES: Pancreas: Limited\obscured by overlying bowel gas Liver: wnl Gallbladder: wnl Evidence for sonographic Dumont's sign: No CBD: wnl Right Kidney: Lower pole gassed out, mildly dilated renal pelvis IMPRESSION: 1. No evidence of gallstones. 2. Mild pelvocaliectasis\hydronephrosis of the right kidney.
--- NOTE | 2023-11-04 12:22 | ED ---
Nausea/Vomiting/Diarrhea HPI - General Chief complaint: Nausea/Vomiting/Diarrhea Stated complaint: NV,24 Wks Time Seen by Provider: 11/04/23 11:14 Source: patient, RN notes reviewed Limitations: no limitations - History of Present Illness Initial comments: 32-year-old female presents emergency department complaint of nausea vomiting dehydration. Patient states that she has been vomiting throughout the night states that she has some epigastric pain after her episodes of emesis. She denies any chest pain. States she just feels very weak, dehydrated. Patient has been having some on and off issues of her right upper quadrant and concern for gallbladder disease. Patient denies any abdominal complications denies any Vagilia or vaginal discharge no dysuria. - Related Data Home Medications Medication Instructions Recorded Confirmed Vit No.180/Iron/Folic 1 tab PO ONCE 05/25/21 07/07/21 [ Plus Tablet] Previous Rx's Medication Instructions Recorded Azithromycin [Zithromax Z Pack] 0 tab PO DIRECTED #6 tab 09/05/23 Allergies Allergy/AdvReac Type Severity Reaction Status Date / Time No Known Allergies Allergy Verified 11/04/23 11:31 Review of Systems ROS Statement: Those systems with pertinent positive or pertinent negative responses have been documented in the HPI. ROS Other: All systems not noted in ROS Statement are negative. Past Medical History Past Medical History: No Reported History History of Any Multi-Drug Resistant Organisms: None Reported Past Surgical History: No Surgical Hx Reported Past Anesthesia/Blood Transfusion Reactions: No Reported Reaction Past Psychological History: No Psychological Hx Reported Smoking Status: Never smoker Past Alcohol Use History: Occasional Past Drug Use History: None Reported - Past Family History Mother Family Medical History: Cancer Additional Family Medical History / Comment(s): Breast Cancer General Exam Limitations: no limitations General appearance: alert, in no apparent distress Head exam: Present: atraumatic, normocephalic, normal inspection Respiratory exam: Present: normal lung sounds bilaterally. Absent: respiratory distress, wheezes, rales, rhonchi, stridor Cardiovascular Exam: Present: regular rate, normal rhythm, normal heart sounds. Absent: systolic murmur, diastolic murmur, rubs, gallop, clicks GI/Abdominal exam: Present: soft, normal bowel sounds. Absent: distended, tenderness, guarding, rebound, rigid Back exam: Absent: CVA tenderness (R), CVA tenderness (L) Neurological exam: Present: alert Course Vital Signs 11/04/23 11/04/23 11:22 12:53 Temperature 97.7 F Pulse Rate 84 87 Respiratory 18 18 Rate Blood Pressure 129/64 106/75 O2 Sat by Pulse 99 99 Oximetry Medical Decision Making - Medical Decision Making Was pt. sent in by a medical professional or institution (MAAME Coates, PATTERN MAKER, urgent care, hospital, or correction...) When possible be specific @ -No Did you speak to anyone other than the patient for history (EMS, parent, family, police, friend...)? What history was obtained from this source @ -No Did you review nursing and triage notes (agree or disagree)? Why? @ -I reviewed and agree with nursing and triage notes Were old charts reviewed (outside hosp., previous admission, EMS record, old EKG, old radiological studies, urgent care reports/EKG's, correction records)? Report findings @ -No old charts were reviewed Differential Diagnosis (chest pain, altered mental status, abdominal pain women, abdominal pain men, vaginal bleeding, weakness, fever, dyspnea, syncope, headache, dizziness, GI bleed, back pain, seizure, CVA, palpatations, mental health, musculoskeletal)? @ -[Differential Abdominal Pain Women: Appendicitis, Cholecystitis, diverticulosis, ischemic bowel, pancreatitis, hepatitis, UTI, gastroenteritis, AAA, incarcerated hernia, bowel obstruction, constipation, inflammatory bowel, hepatitis, peptic ulcer disease, splenic infarction, perforated viscus, vulvitis, ovarian torsion, PID, kidney stone, pl acenta abruption, this is not meant to be an all-inclusive list EKG interpreted by me (3pts min.). @ -None X-rays interpreted by me (1pt min.). @ -None done CT interpreted by me (1pt min.). @ -None done U/S interpreted by me (1pt. min.). @ -Ultrasound gallbladder shows evidence of dilated right ureter, pelvis of the kidney no gallstones What testing was considered but not performed or refused? (CT, X-rays, U/S, labs)? Why? @ -None What meds were considered but not given or refused? Why? @ -None Did you discuss the management of the patient with other professionals (professionals i.e. MAAME Coates, PATTERN MAKER, lab, RT, psych nurse, social worker health services, audit associate, teacher, military police officer, hospice case manager)? Give summary @ -No Was smoking cessation discussed for >3mins.? @ -No Was critical care preformed (if so, how long)? @ -No Were there social determinants of health that impacted care today? How? (Homelessness, low income, unemployed, alcoholism, drug addiction, transportation, low edu. Level, literacy, decrease access to med. care, [facility], rehab)? @ -No Was there de-escalation of care discussed even if they declined (Discuss DNR or withdrawal of care, Hospice)? DNR status @ -No What co-morbidities impacted this encounter? (DM, HTN, Smoking, COPD, CAD, Cancer, CVA, ARF, Chemo, Hep., AIDS, mental health diagnosis, sleep apnea, morbid obesity)? @ -None Was patient admitted / discharged? Hospital course, mention meds given and route, prescriptions, significant lab abnormalities, going to OR and other pert inent info. @ -Discharge patient feels improved after IV fluids and antiemetics. Patient ultrasound was negative for acute process. Patient discharged in stable condition return as discussed. Undiagnosed new problem with uncertain prognosis? @ -No Drug Therapy requiring intensive monitoring for toxicity (Heparin, Nitro, Insulin, Cardizem)? @ -No Were any procedures done? @ -No Diagnosis/symptom? @ -Nausea vomiting Acute, or Chronic, or Acute on Chronic? @ -Acute Uncomplicated (without systemic symptoms) or Complicated (systemic symptoms)? @ -Uncomplicated Side effects of treatment? @ -No Exacerbation, Progression, or Severe Exacerbation? @ -No Poses a threat to life or bodily function? How? (Chest pain, USA, NC, pneumonia, PE, COPD, DKA, ARF, appy, cholecystitis, CVA, Diverticulitis, Homicidal, Suicidal, threat to staff... and all critical care pts) @ -No - Lab Data Result diagrams: 11/04/23 11:34 11/04/23 11:34 Lab Results 11/04/23 11/04/23 Range/Units 11:34 11:34 WBC 11.4 H (3.8-10.6) k/uL RBC 3.93 (3.80-5.40) m/uL Hgb 12.8 (11.4-16.0) gm/dL Hct 36.8 (34.0-46.0) % MCV 93.6 (80.0-100.0) fL MCH 32.5 (25.0-35.0) pg MCHC 34.7 (31.0-37.0) g/dL RDW 13.6 (11.5-15.5) % Plt Count 221 (150-450) k/uL MPV 9.2 Neutrophils % 86 % Lymphocytes % 7 % Monocytes % 4 % Eosinophils % 2 % Basophils % 0 % Neutrophils # 9.8 H (1.3-7.7) k/uL Lymphocytes # 0.8 L (1.0-4.8) k/uL Monocytes # 0.5 (0-1.0) k/uL Eosinophils # 0.2 (0-0.7) k/uL Basophils # 0.0 (0-0.2) k/uL Sodium 137 (137-145) mmol/L Potassium 4.2 (3.5-5.1) mmol/L Chloride 104 (98-107) mmol/L Carbon Dioxide 23 (22-30) mmol/L Anion Gap 10 mmol/L BUN 8 (7-17) mg/dL Creatinine 0.51 L (0.52-1.04) mg/dL Est GFR (CKD-EPI)AfAm >90 (>60 ml/min/1.73 sqM) Est GFR (CKD-EPI)NonAf >90 (>60 ml/min/1.73 sqM) Glucose 90 (74-99) mg/dL Calcium 9.2 (8.4-10.2) mg/dL Total Bilirubin 0.5 (0.2-1.3) mg/dL AST 21 (14-36) U/L ALT 10 (4-34) U/L Alkaline Phosphatase 106 (38-126) U/L Total Protein 7.8 (6.3-8.2) g/dL Albumin 4.3 (3.5-5.0) g/dL Lipase 124 (23-300) U/L Disposition Clinical Impression: Nausea & vomiting Disposition: HOME SELF-CARE Condition: Stable Instructions (If sedation given, give patient instructions): Acute Nausea and Vomiting (ED) Additional Instructions: Please return to the Emergency Department if symptoms worsen or any other concerns. Is patient prescribed a controlled substance at d/c from ED?: No Referrals: Esperanza Beckwith DO [Primary Care Provider] - 1-2 days Time of Disposition: 12:47
[2023-11-04 13:07] VITALS: BP 106/75; PULSE 87
== END 2023-11-04 12:54 | disposition home or self-care (01) ==
LOC: EC 11:14
DX: O21.9 Vomiting of pregnancy, unspecified (principal); Z3A.24 24 weeks gestation of pregnancy
CPT/HCPCS: 36415; 80053; 83690; 85025; 76705; 99284; 96374; 96375 ×2; 96361; J1200; J2765; J3490

== ENCOUNTER → 2023-12-15 | Outpatient (CLI) | payer MEDICAID ==
[2023-12-15 13:10] LABS: Glucose 3 Hour, Gest 72 mg/dL
== END | disposition home or self-care (01) ==
LOC: LABWHC1 08:28
PROVIDERS: ATTEND Obstetrics & Gynecology
DX: O99.810 Abnormal glucose complicating pregnancy (principal)
CPT/HCPCS: 36415; 82951; 82952

== ENCOUNTER 2024-03-02 06:13 | Inpatient (IN) | payer MEDICAID, BC ==
[2024-03-02] MEDS ORDERED: CARBOPROST TROMETHAMINE 250 MCG/ML 1 ML AMP IM PRN (06:28)
[2024-03-02] MEDS ORDERED: TRANEXAMIC 1,000 MG/100ML-NACL 1,000 MG in EMPTY BAG 1 BAG IV PRN (06:28)
[2024-03-02] MEDS ORDERED: miSOPROStoL 200 MCG TAB PO PRN (06:28)
[2024-03-02] MEDS ORDERED: OXYTOCIN 10 UNIT/ML 1 ML VIAL IM PRN (06:28)
[2024-03-02] MEDS ORDERED: METHYLERGONOVINE 0.2 MG/ML 1 ML AMP IM PRN (06:28)
[2024-03-02] MEDS ORDERED: LIDOCAINE 0.5% (PF) 5 MG/ML (50 ML SDV) SQ PRN (06:28)
[2024-03-02] MEDS ORDERED: TERBUTALINE 1 MG/ML VIAL SQ PRN (06:28)
[2024-03-02] MEDS ORDERED: miSOPROStoL 200 MCG TAB RECTAL PRN (06:28)
[2024-03-02 06:36] VITALS: RESP 16
[2024-03-02] MEDS: LACTATED RINGERS 1,000 ML IV SCH (06:38)
[2024-03-02] MEDS: OXYTOCIN 30 UNITS/500 ML NS 30 UNIT in SALINE 1 500ML.BAG IV SCH (06:38)
[2024-03-02 07:41] LABS: Basophils % (A) 1 %; Eosinophils # (A) 0.1 k/uL (0-0.7); Eosinophils % (A) 2 %; HCT 32.4 % (34.0-46.0); HGB 10.5 gm/dL (11.4-16.0); Lymphocytes # (A) 1.1 k/uL (1.0-4.8); Lymphocytes % (A) 23 %; MCH 29.2 pg (25.0-35.0); MCHC 32.3 g/dL (31.0-37.0); MCV 90.3 fL (80.0-100.0); Mean Platelet Volume 12.1; Monocytes # (A) 0.3 k/uL (0-1.0); Monocytes % (A) 6 %; Neutrophils % (A) 66 %; Platelet Count 164 k/uL (150-450); RBC 3.59 m/uL (3.80-5.40); RDW 13.5 % (11.5-15.5); WBC 4.6 k/uL (3.8-10.6)
--- NOTE | 2024-03-02 08:23 | P.HPOB ---
History of Present Illness H&P Date: 03/02/24 Chief Complaint: Postdates This is a 33 year old 2 para 1001 woman with an estimated due date of 02/25/2024 based on LMP consistent with first trimester ultrasound. She is admitted at 40-6/7 weeks' gestation for postdates induction of labor with a favorable cervix. She has had an unremarkable and is known Rh-. Obstetrical history is significant for the term spontaneous vaginal delivery in 2020. Laboratory data: Group B strep negative, blood type A-, antibody screen negative, rubella immune, VDRL nonreactive, hepatitis B and hepatitis C n onreactive, HIV nonreactive, glucose tolerance testing within normal limits, gonorrhea and clinic cultures negative. Past medical history noncontributory next past surgical history exploratory laparoscopy 2010 Review of Systems All systems: negative Past Medical History Past Medical History: No Reported History Additional Past Medical History / Comment(s): endometriosis History of Any Multi-Drug Resistant Organisms: None Reported Past Surgical History: No Surgical Hx Reported Past Anesthesia/Blood Transfusion Reactions: No Reported Reaction Past Psychological History: No Psychological Hx Reported Smoking Status: Never smoker Past Alcohol Use History: Occasional Past Drug Use History: None Reported - Past Family History Mother Family Medical History: Cancer Additional Family Medical History / Comment(s): Breast Cancer Medications and Allergies Home Medications Medication Instructions Recorded Confirmed Type No Known Home Medications 03/02/24 03/02/24 History Allergies Allergy/AdvReac Type Severity Reaction Status Date / Time No Known Allergies Allergy Verified 02/02/24 08:35 Exam Vital Signs Temp Pulse Resp BP Pulse Ox 03/02/24 06:27 97.0 F L 79 16 133/68 99 Intake and Output 03/01/24 03/02/24 03/02/24 22:59 06:59 14:59 Other: Weight 77.111 kg Targeted physical exam is performed. This is a pleasant, visibly gravid and comfortable appearing female. On pelvic examination the cervix is 3-4 cm dilated, 80% effaced, vertex in the -2 station. Artificial rupture of membranes is undertaken and clear fluid is noted. status is category 1 by external monitoring and she is irregularly jerica. Results Result Diagrams: 03/02/24 07:07 Abnormal Lab Results - Last 24 Hours (Table) 03/02/24 Range/Units 07:07 RBC 3.59 L (3.80-5.40) m/uL Hgb 10.5 L (11.4-16.0) gm/dL Hct 32.4 L (34.0-46.0) % Assessment and Plan (1) Post-dates Current Visit: Yes Status: Acute Code(s): O48.0 - POST-TERM SNOMED Code(s): 30220561 (2) Rh negative, maternal Current Visit: Yes Status: Acute Code(s): O26.899 - OTH RELATED CONDITIONS, UNSPECIFIED TRIMESTER; Z67.91 - UNSPECIFIED BLOOD TYPE, RH NEGATIVE SNOMED Code(s): 760718175 Plan: 33-year-old 2 para 1001 woman admitted at 40-6/7 weeks' gestation for postdates induction of labor. She is group B strep negative and Rh-. status is currently reassuring by external monitoring. She may receive an epidural anesthetic upon request in active labor. Anticipate normal spontaneous vaginal delivery. Time with Patient: Greater than 30
[2024-03-02 08:37] LABS: Large Platelets Present
[2024-03-02] MEDS ORDERED: diphenhydrAMINE 25 MG CAP PO PRN (12:35)
[2024-03-02] MEDS ORDERED: diphenhydrAMINE 50 MG CAP PO PRN (12:35)
[2024-03-02] MEDS ORDERED: diphenhydrAMINE 50 MG/ML 1 ML VIAL IVP PRN ×2 (12:35)
[2024-03-02] MEDS ORDERED: LANOLIN CREAM 1 GM TUBE TOPICAL PRN (12:35)
[2024-03-02] MEDS ORDERED: SIMETHICONE 80 MG CHEWABLE PO PRN (12:35)
[2024-03-02] MEDS ORDERED: HYDROCORTISONE 2.5% RECTAL CREAM 30 GM TUBE RECTAL PRN (12:35)
[2024-03-02] MEDS ORDERED: ZOLPIDEM 5 MG TAB PO PRN (12:35)
[2024-03-02] MEDS ORDERED: BENZOCAINE/MENTHOL SPRAY 1 GM/SPRAY AEROSOL TOPICAL PRN (12:35)
--- NOTE | 2024-03-02 12:35 | P.PROBDLV ---
Vaginal Delivery Note - . Vaginal Delivery Note: Findings: Male infant in the right occiput anterior position with Apgars of 8 at 1 minute and 9 at 5 minutes weighing 8 lbs. 5 oz., 3775 g. Second-degree perineal laceration. Intact, three-vessel cord placenta. EBL 150 mL's. Delivery summary: This is a 33-year-old 2 para 1001 woman who is admitted at 41 weeks gestation in for postdates induction of labor. Following admission she underwent a Pitocin induction of labor with artificial rupture of membranes. She received an epidural anesthetic. She went on to progress to complete cervical dilation. At complete she had strong urge to push. She was repositioned, prepped and draped in the dorsal modified Gracie position. With additional maternal effort the head did deliver from the right occiput anterior position. The anterior followed by the posterior shoulders were delivered rapidly and without difficulty. The infant was delivered onto the field and the nose and mouth were bulb suctioned. The was placed on the maternal abdomen. Eventually the cord was clamped and cut and the was taken to the warmer for further evaluation. Apgars were 8 at 1 minute and 9 at 5 minutes and weight was 8 lbs. 5 oz. The perineum was inspected and a second- degree laceration was noted. This was infused with lidocaine and repaired with 3-0 Vicryl suture in the usual fashion. An intact, three-vessel cord placenta was expressedter approximately 10 minute third stage of labor. The patient received Pitocin following the third stage of labor. The rest of the vagina and cervix were inspected no further lacerations were noted. All counts were correct. Both mother and infant were doing well post delivery in the room.
[2024-03-02] MEDS: IBUPROFEN 600 MG TAB PO PRN (13:03)
[2024-03-02] MEDS: Rhogam IMMUNE GLOBULIN 1,500 UNIT/1 ML IM ONE (18:12)
[2024-03-02] MEDS: SENNOSIDES-DOCUSATE SODIUM 1 EACH TAB PO SCH (20:22)
[2024-03-03] MEDS: ACETAMINOPHEN TAB 325 MG TAB PO PRN (00:25)
[2024-03-03 07:34] LABS: Basophils % (A) 0 %; Eosinophils # (A) 0.1 k/uL (0-0.7); Eosinophils % (A) 1 %; HCT 26.9 % (34.0-46.0); Lymphocytes # (A) 1.1 k/uL (1.0-4.8); Lymphocytes % (A) 14 %; MCH 29.4 pg (25.0-35.0); MCHC 32.7 g/dL (31.0-37.0); MCV 90.1 fL (80.0-100.0); Mean Platelet Volume 11.5; Monocytes # (A) 0.4 k/uL (0-1.0); Monocytes % (A) 5 %; Neutrophils # (A) 6.1 k/uL (1.3-7.7); Neutrophils % (A) 78 %; Platelet Count 116 k/uL (150-450); RBC 2.98 m/uL (3.80-5.40); RDW 13.7 % (11.5-15.5); WBC 7.8 k/uL (3.8-10.6)
[2024-03-03 07:41] LABS: HGB 8.8 gm/dL (11.4-16.0)
[2024-03-03 09:22] VITALS: TEMP 97.8
--- NOTE | 2024-03-03 16:39 | P.DS ---
Providers Date of admission: 03/02/24 06:13 Expected date of discharge: 03/03/24 Attending physician: Benita Duarte Primary care physician: Stated None - Discharge Diagnosis(es) (1) Post-dates Current Visit: Yes Status: Acute (2) Rh negative, maternal Current Visit: Yes Status: Acute (3) Normal spontaneous vaginal delivery Current Visit: Yes Status: Acute (4) Perineal laceration with delivery, second degree Current Visit: Yes Status: Acute Hospital Course: This is a 33 year old 2 now para 2 woman who is admitted at 41 weeks gestation for postdates induction of labor. Following admission she underwent Pitocin induction of labor with artificial rupture of membranes. Clear fluid was noted. She received an epidural anesthetic in active labor and had an unremarkable and rapid progression to complete cervical dilation. When she reached complete she had strong urge to push and one on to deliver a liveborn male infant over second-degree perineal laceration with Apgars of 8 at 1 minute and 9 at 5 minutes weighing 8 lbs. 5 oz. The patient's course was entirely unremarkable by day #1 she was ambulating and voiding without difficulty. Her lochia was minimal. She was breast-feeding successfully. And her labs were within normal limits. The was circumcised and had a normal cardiac echo. The patient was therefore discharged home on day #1 with routine instructions for care and follow-up. Patient Condition at Discharge: Good Plan - Discharge Summary New Discharge Prescriptions: New Benzocaine/Menthol Aurora [Dermoplast Aurora] 1 gm TOPICAL TID PRN each PRN Reason: Perineal Discomfort Ibuprofen [Motrin] 600 mg PO Q6HR PRN tab PRN Reason: Mild Pain (Scale 1 To 3) Acetaminophen Tab [Tylenol] 650 mg PO Q4HR PRN tab PRN Reason: Mild Pain Or Fever >= 100.5 Discharge Medication List Acetaminophen Tab [Tylenol] 650 mg PO Q4HR PRN tab 03/03/24 [Rx] Benzocaine/Menthol Aurora [Dermoplast Aurora] 1 gm TOPICAL TID PRN each 03/03/24 [Rx] Ibuprofen [Motrin] 600 mg PO Q6HR PRN tab 03/03/24 [Rx] Follow up Appointment(s)/Referral(s): Benita Duarte MD [STAFF PHYSICIAN] - 04/13/24 1:15 pm Activity/Diet/Wound Care/Special Instructions: Follow-up in the office in 6 weeks . Call with any concerning signs or symptoms including heavy vaginal bleeding, severe abdominal pain, fever greater than 101, swelling or redness of the lower extremities, foul vaginal discharge, or signs of depression. Nothing in the vagina for 6 weeks after delivery, specifically no intercourse. Discharge Disposition: HOME SELF-CARE
[2024-03-03 17:41] VITALS: BP 135/77; PULSE 84
== END 2024-03-03 18:22 | disposition home or self-care (01) | DRG 807 ==
LOC: 4FBP 06:13
PROVIDERS: ADMIT Obstetrics & Gynecology; ATTEND Obstetrics & Gynecology
PROC: 3E033VJ Introduction of Other Hormone into Peripheral Vein, Percutaneous Approach (ICD-10-PCS; principal; 2024-03-02)
PROC: 10E0XZZ Delivery of Products of Conception, External Approach (ICD-10-PCS; principal; 2024-03-02)
PROC: 0KQM0ZZ Repair Perineum Muscle, Open Approach (ICD-10-PCS; principal; 2024-03-02)
PROC: 10907ZC Drainage of Amniotic Fluid, Therapeutic from Products of Conception, Via Natural or Artificial Opening (ICD-10-PCS; principal; 2024-03-02)
PROC: 3E0234Z Introduction of Serum, Toxoid and Vaccine into Muscle, Percutaneous Approach (ICD-10-PCS; principal; 2024-03-02)
DX: O48.0 Post-term pregnancy (principal); O26.893 Other specified pregnancy related conditions, third trimester; O70.1 Second degree perineal laceration during delivery; Z67.11 Type A blood, Rh negative; Z3A.40 40 weeks gestation of pregnancy; Z37.0 Single live birth
CPT/HCPCS: 85025; 85461; 86850; 86900; 86901